=== PATIENT | female | born 1985 | race Caucasian/White ===

== ENCOUNTER 2018-06-11 10:34 | Outpatient (CLI) | payer OTHER | END 2018-06-11 11:27 | disposition home or self-care (01) | LOC: NST 10:34 | DX: Z34.83 Encounter for supervision of other normal pregnancy, third trimester (principal) ==

== ENCOUNTER 2018-07-23 11:00 | Inpatient (IN) | payer OTHER ==
[~2018-07-23] VITALS: Ht 172.7 cm; Wt 83.5 kg
[2018-08-04] MEDS ORDERED: SYNTHROID137 MCG PO (07:11)
[2018-08-04] MEDS ORDERED: IRON325 MG PO (07:12)
[2018-08-04] MEDS ORDERED: PRENATAL FORMU1 EAC1 PO (07:12)
[2018-08-04] MEDS ORDERED: PROBIOTIC1 EAC1 PO (07:12)
== END 2018-08-06 12:47 | disposition home or self-care (01) | DRG 798 ==
LOC: LDR 08-04 06:05 → OB/GYN 08-04 14:51
PROVIDERS: ADMIT Obstetrics & Gynecology
PROC: 0UL70ZZ Occlusion of Bilateral Fallopian Tubes, Open Approach (ICD-10-PCS; 2018-08-04)
PROC: 0KQM0ZZ Repair Perineum Muscle, Open Approach (ICD-10-PCS; 2018-08-04)
PROC: 3E033VJ Introduction of Other Hormone into Peripheral Vein, Percutaneous Approach (ICD-10-PCS; 2018-08-04)
PROC: 4A1HXCZ Monitoring of Products of Conception, Cardiac Rate, External Approach (ICD-10-PCS; 2018-08-04)
PROC: 10E0XZZ Delivery of Products of Conception, External Approach (ICD-10-PCS; principal; 2018-08-04 14:00)
DX: O70.1 Second degree perineal laceration during delivery (principal); Z37.0 Single live birth; Z3A.39 39 weeks gestation of pregnancy; Z30.2 Encounter for sterilization

== ENCOUNTER 2018-08-02 10:44 | Outpatient (CLI) | payer OTHER | END 2018-08-02 11:58 | disposition home or self-care (01) | LOC: NST 10:44 | DX: Z34.83 Encounter for supervision of other normal pregnancy, third trimester (principal) ==

== ENCOUNTER 2021-12-31 11:26 | Emergency (ER) | payer OTHER ==
[~2021-12-31] VITALS: Ht 172.7 cm; Wt 68.0 kg
[~2021-12-31 11:26] MED LIST: IRON325 MG PO; PRENATAL FORMU1 EAC1 PO; PROBIOTIC1 EAC1 PO; SYNTHROID137 MCG PO
[2021-12-31] MEDS ORDERED: SYNTHROID100 MCG PO (11:45)
== END 2021-12-31 20:02 | disposition home or self-care (01) ==
LOC: ER 11:26
DX: O99.611 Diseases of the digestive system complicating pregnancy, first trimester (principal); K29.70 Gastritis, unspecified, without bleeding; B34.9 Viral infection, unspecified; Z3A.08 8 weeks gestation of pregnancy; Z20.822 Contact with and (suspected) exposure to COVID-19; Z91.011 Allergy to milk products

== ENCOUNTER 2024-02-01 12:22 | Outpatient (CLI) | payer OTHER ==
[~2024-02-01 12:22] MED LIST changes: +SYNTHROID100 MCG PO
== END 2024-02-01 12:24 | disposition home or self-care (01) ==
LOC: SONOGRAMA 12:22
PROVIDERS: ATTEND Pathology Anatomic Pathology & Clinical Pathology
DX: D34 Benign neoplasm of thyroid gland (principal); E06.3 Autoimmune thyroiditis; E04.2 Nontoxic multinodular goiter